=== PATIENT | male | born 1995 | race Caucasian/White ===

== ENCOUNTER 2022-06-20 19:35 | Emergency (ER) | payer BC ==
[2022-06-20 23:26] LABS: Basophils % (A) 0 %; Eosinophils # (A) 0.1 k/uL (0-0.7); Eosinophils % (A) 1 %; HCT 46.4 % (39.0-53.0); HGB 16.3 gm/dL (13.0-17.5); Lymphocytes # (A) 2.2 k/uL (1.0-4.8); Lymphocytes % (A) 32 %; MCH 29.5 pg (25.0-35.0); MCHC 35.2 g/dL (31.0-37.0); MCV 83.8 fL (80.0-100.0); Mean Platelet Volume 7.7; Monocytes # (A) 0.4 k/uL (0-1.0); Monocytes % (A) 5 %; Neutrophils % (A) 59 %; Platelet Count 180 k/uL (150-450); RBC 5.54 m/uL (4.30-5.90); RDW 13.4 % (11.5-15.5); WBC 6.9 k/uL (3.8-10.6)
--- NOTE | 2022-06-20 23:27 | CT ---
EXAMINATION TYPE: CT abdomen pelvis wo con DATE OF EXAM: 06/20/2022 COMPARISON: 09/06/2010 HISTORY: RLQ and flank pain CT DLP: 647.7 mGycm Automated exposure control for dose reduction was used. Images obtained from the diaphragm to the floor the pelvis with no contrast. The lung bases are clear. No pleural effusion. Heart size is normal. No pericardial effusion. Liver s pleen and stomach pancreas gallbladder appear intact. The bile ducts are not dilated. There is no adrenal mass. Kidneys of normal size and contour. There is some deformity of the left kid bhanu with variable cortical thinning and consistent with scarring. No hydronephrosis. No retroperitone al adenopathy. There are some pericecal lymph nodes. Appendix is posterior and appears normal. The bl adder distends smoothly. No inguinal hernia. No free fluid in the pelvis. No pelvic mass. There is no mesenteric edema. No ascites or free air. No sign of a bowel obstruction. The lumbar vert ebra appear intact with no compression fracture. Bony pelvis is intact. The hip joints are intact. Sa croiliac joints are intact. IMPRESSION: Normal appendix. No evidence of renal stone or obstruction. I do not see a cause for right-sided pain . There is some deformity of the left kidney consistent with scarring and chronic pyelonephritis. This appears new compared to old exam.
[2022-06-20 23:40] LABS: Appearance,Urine Clear (Clear); Bilirubin,Urine Negative (Negative); Blood,Urine Negative (Negative); Color,Urine Yellow; Glucose,Urine (UA) Negative (Negative); Ketones,Urine 2+ (Negative); Leukocyte Esterase,Urine Negative (Negative); Mucus,Urine Moderate /hpf; Nitrite,Urine Negative (Negative); PH, Urine 5.5 (5.0-8.0); Protein,Urine 1+ (Negative); RBC,Urine 1 /hpf (0-5); Specific Gravity,Urine 1.024 (1.001-1.035); Urobilinogen,Urine <2.0 mg/dL (<2.0); WBC,Urine 3 /hpf (0-5)
[2022-06-20 23:55] LABS: Albumin 4.8 g/dL (3.5-5.0); Calcium 9.6 mg/dL (8.4-10.2); Total Bilirubin 0.8 mg/dL (0.2-1.3); Total Protein 7.5 g/dL (6.3-8.2)
--- NOTE | 2022-06-21 00:26 | ED ---
Abdominal Pain HPI - General Chief Complaint: Abdominal Pain Stated Complaint: ABD and lower back pain Time Seen by Provider: 06/20/22 22:32 Source: patient, RN notes reviewed Mode of arrival: ambulatory Limitations: no limitations - History of Present Illness Initial Comments: This is a 27-year-old male who presents to the emergency department for abdom inal pain. States that over the last 1-2 weeks, he has had intermittent pain in the right lower back and right lower quadrant. Denies any nausea or vomiting, changes in urinary or bowel habits. He was at urgent care today, who recommended he go to the emergency department for further evaluation. Denies any history of similar symptoms in the past. He does not take anything for his symptoms when they occur. He does do a lot of bending and lifting at work, and is unsure if this may be contributing to his symptoms. Denies any fevers, chills, sore throat, cough, dyspnea, chest pain, palpitations, nausea, vomiting, diarrhea, or headaches. MD Complaint: abdominal pain Onset/Timin -: week(s) Location: RLQ Radiation: back Associated Symptoms: denies other symptoms - Related Data Allergies Allergy/AdvReac Type Severity Reaction Status Date / Time No Known Allergies Allergy Verified 06/20/22 19:53 Review of Systems ROS Statement: Those systems with pertinent positive or pertinent negative responses have been documented in the HPI. ROS Other: All systems not noted in ROS Statement are negative. Past Medical History Past Medical History: No Reported History Past Surgical History: Adenoidectomy, Tonsillectomy Past Psychological History: No Psychological Hx Reported Smoking Status: Never smoker Past Alcohol Use History: Occasional Past Drug Use History: None Reported General Exam Limitations: no limitations General appearance: alert, in no apparent distress Head exam: Present: atraumatic, normocephalic, normal inspection Respiratory exam: Present: normal lung sounds bilaterally. Absent: respiratory distress, wheezes, rales, rhonchi, stridor Cardiovascular Exam: Present: regular rate, normal rhythm, normal heart sounds. Absent: systolic murmur, diastolic murmur, rubs, gallop, clicks GI/Abdominal exam: Present: soft, normal bowel sounds. Absent: distended, tenderness, guarding, rebound, rigid Back exam: Present: normal inspection. Absent: tenderness, CVA tenderness (R), CVA tenderness (L) Neurological exam: Present: alert, oriented X3, CN II-XII intact Psychiatric exam: Present: normal affect, normal mood Skin exam: Present: warm, dry, intact, normal color. Absent: rash Course Vital Signs 06/20/22 06/20/22 06/21/22 19:46 23:15 00:58 Temperature 98.1 F 98.9 F Pulse Rate 114 H 93 77 Respiratory 18 18 16 Rate Blood Pressure 147/94 150/75 126/63 O2 Sat by Pulse 99 99 99 Oximetry Medical Decision Making - Medical Decision Making This is a 27-year-old male who presents to the emergency department for abdominal pain. Lab work obtained and found to be nonactionable. Urinalysis negative. Computed tomography scan of the abdomen and pelvis obtained. On my interpretation, there is no evidence of renal calculus or hydronephrosis. I also did not identify any dilation of the appendix to suggest an appendicitis. Advised the patient that we do not have a clear cause for his symptoms at this time. This may be musculoskeletal related. Advised that he limit the amount of bending and lifting he does, and he should aim to bend and lift with the legs. Also advised he try taking ibuprofen when his symptoms occur. He'll follow up with his primary care provider to discuss ongoing symptoms and if any additional testing is indicated. Return precautions reviewed in depth, the patient is instructed to return to the emergency department with any new, worsening, or concerning symptoms. Patient verbalized understanding. This case was discussed in detail with the attending ED physician. Presentation, findings, and treatment plan discussed in detail as well. - Lab Data Result diagrams: 06/20/22 23:10 06/20/22 23:10 Lab Results 06/20/22 06/20/22 06/20/22 Range/Units 23:10 23:10 23:11 WBC 6.9 (3.8-10.6) k/uL RBC 5.54 (4.30-5.90) m/uL Hgb 16.3 (13.0-17.5) gm/dL Hct 46.4 (39.0-53.0) % MCV 83.8 (80.0-100.0) fL MCH 29.5 (25.0-35.0) pg MCHC 35.2 (31.0-37.0) g/dL RDW 13.4 (11.5-15.5) % Plt Count 180 (150-450) k/uL MPV 7.7 Neutrophils % 59 % Lymphocytes % 32 % Monocytes % 5 % Eosinophils % 1 % Basophils % 0 % Neutrophils # 4.0 (1.3-7.7) k/uL Lymphocytes # 2.2 (1.0-4.8) k/uL Monocytes # 0.4 (0-1.0) k/uL Eosinophils # 0.1 (0-0.7) k/uL Basophils # 0.0 (0-0.2) k/uL Sodium 139 (137-145) mmol/L Potassium 4.0 (3.5-5.1) mmol/L Chloride 104 (98-107) mmol/L Carbon Dioxide 23 (22-30) mmol/L Anion Gap 12 mmol/L BUN 19 (9-20) mg/dL Creatinine 1.50 H (0.66-1.25) mg/dL Est GFR (CKD-EPI)AfAm 74 (>60 ml/min/1.73 sqM) Est GFR (CKD-EPI)NonAf 64 (>60 ml/min/1.73 sqM) Glucose 99 (74-99) mg/dL Calcium 9.6 (8.4-10.2) mg/dL Total Bilirubin 0.8 (0.2-1.3) mg/dL AST 33 (17-59) U/L ALT 49 (4-49) U/L Alkaline Phosphatase 76 (38-126) U/L Total Protein 7.5 (6.3-8.2) g/dL Albumin 4.8 (3.5-5.0) g/dL Amylase 67 (30-110) U/L Lipase 73 (23-300) U/L Urine Color Yellow Urine Appearance Clear (Clear) Urine pH 5.5 (5.0-8.0) Ur Specific [place] 1.024 (1.001-1.035) Urine Protein 1+ H (Negative) Urine Glucose (UA) Negative (Negative) Urine Ketones 2+ H (Negative) Urine Blood Negative (Negative) Urine Nitrite Negative (Negative) Urine Bilirubin Negative (Negative) Urine Urobilinogen <2.0 (<2.0) mg/dL Ur Leukocyte Esterase Negative (Negative) Urine RBC 1 (0-5) /hpf Urine WBC 3 (0-5) /hpf Urine Mucus Moderate H (None) /hpf - Radiology Data Radiology results: report reviewed, image reviewed Disposition Clinical Impression: RLQ abdominal pain Disposition: HOME SELF-CARE Instructions (If sedation given, give patient instructions): Abdominal Pain (ED) Additional Instructions: Return to the emergency department with any new, worsening, or concerning symptoms. Try taking ibuprofen when your symptoms occur. You can also use warm moist heat. Limit the amount of lifting and bending you do at work. When you do have to lift or bend, try lifting with your knees. Follow up with your primary care provider in 1-2 days. Is patient prescribed a controlled substance at d/c from ED?: No Referrals: Florencio Sarmiento MD [Primary Care Provider] - 1-2 days
[2022-06-21 00:59] VITALS: BP 126/63; PULSE 77; RESP 16; TEMP 98.9
== END 2022-06-21 00:59 | disposition home or self-care (01) ==
LOC: EC 19:35
DX: R10.31 Right lower quadrant pain (principal)
CPT/HCPCS: 36415; 74176; 80053; 81001; 82150; 83690; 85025; 99284